=== PATIENT | female | born 1960 | race Hispanic/Latino ===

== ENCOUNTER 2017-06-12 07:33 | Emergency (ER) | payer BC ==
--- NOTE | 2017-06-12 07:53 | ED PDOC ---
Arrival/HPI - General Historian: Patient, Spouse - History of Present Illness Time/Duration: Other (04:30 this morning) Context: Home - General Time Seen by Provider: 06/12/17 07:52 - History of Present Illness Narrative History of Present Illness (Text): 06/12/17 07:52 A 56 year old female, whose past medical history includes orthostatic hypertension, renal failure, anxiety, depression, Parkinsonism, Lewy body dementia, s/p parathyroid tumor removal, presents to the emergency department accompanied by for head trauma. Patient reports she woke up this morning and noticed she was bleeding from a cut to her right tenriism. Patient states she not remember when she fell or how she injured herself. reports he walked into the room at 04:30 this morning and saw his on the floor. Patient denies any other injuries, fever, chills, nausea, vomiting, abdominal pain, chest pain, shortness of breath, headache, dizziness or any other complaints. PMD: [facility] Past Medical History - Provider Review Nursing Documentation Reviewed: Yes - Infectious Disease Hx of Infectious Diseases: None - Tetanus Immunization Tetanus Immunization: Unknown - Cardiac Hx Cardiac Disorders: Yes Hx Hypertension: Yes - Pulmonary Hx Respiratory Disorders: Yes Hx Bronchitis: Yes - Neurological Hx Neurological Disorder: Yes Hx Dizziness: Yes - HEENT Hx HEENT Disorder: No - Renal Hx Renal Failure: Yes - Endocrine/Metabolic Hx Endocrine Disorders: Yes Other/Comment: Parathyroidectomy - Hematological/Oncological Hx Blood Disorders: Yes Hx Anemia: Yes - Integumentary Hx Dermatological Disorder: No - Musculoskeletal/Rheumatological Hx Arthritis: Yes - Gastrointestinal Hx Gastrointestinal Disorders: Yes Hx Gastroesophageal Reflux: Yes - Genitourinary/Gynecological Hx Genitourinary Disorders: No - Psychiatric Hx Psychophysiologic Disorder: Yes Hx Anxiety: Yes Hx Depression: Yes Hx Panic Disorder: Yes Hx Substance Use: No - Surgical History Hx Cardiac Catheterization: Yes Other/Comment: Paraythyroid removed - Anesthesia Hx Anesthesia: Yes Hx Anesthesia Reactions: No Hx Malignant Hyperthermia: No - Suicidal Assessment Feels Threatened In Home Enviroment: No Family/Social History - Physician Review Nursing Documentation Reviewed: Yes Family/Social History: No Known Family HX Smoking Status: Never Smoked Hx Alcohol Use: No Hx Substance Use: No Hx Substance Use Treatment: No Allergies/Home Meds Allergies/Adverse Reactions: Allergies No Known Allergies Allergy (Verified 07/30/14 19:59) Home Medications: Home Meds Medication Instructions Recorded Confirmed Clonazepam 1 mg PO QID 07/22/15 06/12/17 Dexlansoprazole [Dexilant] 60 mg PO DAILY 07/22/15 06/12/17 Escitalopram [Lexapro] 20 mg PO BID 07/22/15 06/12/17 Rosuvastatin Calcium [Crestor] 10 mg PO DAILY 07/22/15 06/12/17 buPROPion [Wellbutrin] 300 mg PO BID 07/22/15 06/12/17 Brexpiprazole [Rexulti] 1 mg PO DAILY 12/05/15 06/12/17 Cholecalciferol (Vitamin D3) 50,000 units PO WED 12/05/15 06/12/17 [Vitamin D3] Diclofenac Sodium 100 mg PO DAILY 12/05/15 06/12/17 Donepezil [Aricept] 5 mg PO DAILY 12/05/15 06/12/17 Furosemide [Lasix] 40 mg PO DAILY 12/05/15 06/12/17 Metoprolol Tartrate [Lopressor] 12.5 mg PO BID 12/05/15 06/12/17 Review of Systems - Physician Review All systems were reviewed & negative as marked: Yes - Review of Systems Constitutional: absent: Fevers, Night Sweats Respiratory: absent: SOB Cardiovascular: absent: Chest Pain Gastrointestinal: absent: Abdominal Pain, Nausea, Vomiting Skin: Laceration (to right tenriism) Neurological: absent: Headache, Dizziness Physical Exam Vital Signs Reviewed: Yes Temperature: Afebrile Blood Pressure: Hypertensive Pulse: Tachycardic Respiratory Rate: Normal Appearance: Positive for: Well-Appearing, Non-Toxic, Comfortable Pain Distress: None Mental Status: Positive for: Alert and Oriented X 3 - Systems Exam Head: Present: Other (Hematoma to right forhead) Pupils: Present: PERRL Extroacular Muscles: Present: EOMI Conjunctiva: Present: Normal Mouth: Present: Moist Mucous Membranes Neck: Present: Normal Range of Motion Respiratory/Chest: Present: Clear to Auscultation, Good Air Exchange. No: Respiratory Distress, Accessory Muscle Use Cardiovascular: Present: Regular Rate and Rhythm, Normal S1, S2. No: Murmurs Abdomen: Present: Normal Bowel Sounds. No: Tenderness, Distention, Peritoneal Signs Back: Present: Normal Inspection Upper Extremity: Present: Normal Inspection. No: Cyanosis, Edema Lower Extremity: Present: Normal Inspection. No: Edema Neurological: Present: GCS=15, CN II-XII Intact, Speech Normal, Motor Func Grossly Intact, Normal Sensory Function, Normal Cerebellar Funct, Gait Normal ( baseline), Normal 2Pt Descrimination Skin: Present: Warm, Dry, Normal Color. No: Rashes Psychiatric: Present: Alert, Oriented x 3, Normal Insight, Normal Concentration Vital Signs Temp Pulse Resp BP Pulse Ox 06/12/17 09:52 82 16 163/103 H 99 06/12/17 07:46 98.2 F 104 H 18 191/106 H 100 Medical Decision Making - Lab Interpretations I have reviewed the lab results: Yes ED Course and Treatment: 06/12/17 09:37 Procedure note: -Laceration repair requested by ER attending Dr. Husain. -Verbal consent obtained from the patient, wound laceratoin happened under 6 hours ago as per patient. -Rt. sided head/facial laceration between rt. temporal and frontal forehead region: approx. 1cm noted with surrounding hematoma (approx. 4cm diameter). -Sensation intact, motor 5/5, wound irrigated with normal saline 1000cc, clean with betadine, 1% lidocaine injected locally with approx. 0.5cc, sterile procedure, 6-0 nylon made 3 sutures with continuous technique, wound well approximated, bacitracin and gauze dressing, sensation intact, motor 5/5, total procedure time including prep is 20 minutes, less than 2cc of blood loss, no complication during the procedure and the patient tolerated well. -Note: pt. refused hair removal/trim for the procedure. (Mateo Dunn) 06/12/17 07:52 Impression: A 56 year old female with a laceration to right tenriism Differential Diagnosis included but are not limited to: Mechanical fall vs. Syncope with head injury Plan: -- Head CT -- Maxillofacial CT -- Labs -- Tylenol, Lidocaine and Boostrix vaccine -- Reassess and disposition Progress Notes: Report Date : 06/12/2017 09:01:09 PROCEDURE: CT HEAD WITHOUT CONTRAST. Dictator : Ap Anne MD IMPRESSION: No acute intracranial abnormalities. No significant findings to account for the clinical presentation. With the exception of a right parietal scalp contusion/ hematoma, No significant interval change compared to the prior examination(s). Report Date : 06/12/2017 09:06:25 PROCEDURE: CT MAXILLOFACIAL BONES WITHOUT CONTRAST Dictator : Ap Anne MD IMPRESSION: No acute intracranial abnormalities. No significant findings to account for the clinical presentation. 06/12/17 09:[address] reviewed above. Laceration repaired by ISADORA Dunn. Patient tolerated procedure well. Patient walking at baseline. She feels better and denies any lightheadedness or dizziness. She does not want to stay in the hospital. Her agrees because they stat she's been worked up already for falls. History in her records show extensive work up for falls including neurology and cardiology. I discussed case with Dr. Ed. Delatorre who will follow up with her as an outpatient. She will need follow up in 1-2days and also suture removal in 7-10days. Advised to return to the ED if symptoms worsen or any other concern. Head Injury and Syncope discharge instructions given. (Marcus Husain) - Lab Interpretations Lab Results: 06/12/17 08:00 06/12/17 08:00 Lab Results 06/12/17 08:00: Sodium 143, Potassium 3.9, Chloride 105, Carbon Dioxide 27, Anion Gap 15, BUN 21, Creatinine 1.1, Est GFR ( Amer) > 60, Est GFR (Non- Af Amer) 51, Random Glucose 109, Calcium 8.9, Magnesium 1.7 06/12/17 08:00: PT 11.2, INR 1.02, APTT 24.4 L 06/12/17 08:00: WBC 9.1 D, RBC 4.92, Hgb 10.4 L, Hct 34.6 L, MCV 70.3 L, MCH 21.1 L, MCHC 30.1 L, RDW 17.3 H, Plt Count 332, MPV 9.8, Gran % 85.5 H, Lymph % (Auto) 8.5 L, [place] % (Auto) 4.2, Eos % (Auto) 1.7, Baso % (Auto) 0.1, Gran # 7.77 H, Lymph # 0.8 L, [place] # 0.4, Eos # 0.2, Baso # 0.01 - RAD Interpretation Radiology Orders: 06/12/17 07:54 HEAD W/O CONTRAST [CT] Stat MAXILLOFACIAL W/O CONTRAST [CT] Stat - Medication Orders Current Medication Orders: Discontinued Medications Acetaminophen (Tylenol 325mg Tab) 650 mg PO STAT STA Stop: 06/12/17 07:56 Last Admin: 06/12/17 08:18 Dose: 650 mg MAR Pain/Vitals Document 06/12/17 08:18 MS (Rec: 06/12/17 08:20 MS [id number]) Pain Reassessment Is This A Pain ReAssessment? No Sleep Is patient sleeping during reassessment? No Presence of Pain Presence of Pain Yes Pain Scale Used Pain Scale Used Numeric Location Pain Location Body [employer] Office Assistant Description Intermittent Intensity 4 Scale Used Numeric Pain Behavior Guarding Lidocaine HCl (Lidocaine 1% (20ml)) 0 ml SC STAT STA Stop: 06/12/17 07:56 Last Admin: 06/12/17 08:21 Dose: 1 ml Subcutaneous Administrations Document 06/12/17 08:21 MS (Rec: 06/12/17 08:21 MS [id number]) Charges for Administration # of Subcutaneous Administrations 1 Tetanus/Reduced Diphtheria/Acell Pertussis (Boostrix Vaccine Inj) 0.5 ml IM .ONCE ONE Stop: 06/12/17 07:56 Last Admin: 06/12/17 08:20 Dose: 0.5 ml Immunization Registry Document 06/12/17 08:20 MS (Rec: 06/12/17 08:21 MS [id number]) Immunization Registry Consent Date 06/12/17 - Scribe Statement The provider has reviewed the documentation as recorded by the Scribe - Scribe Statement Poly Angel Provider Scribe Attestation: All medical record entries made by the Scribe were at my direction and personally dictated by me. I have reviewed the chart and agree that the record accurately reflects my personal performance of the history, physical exam, medical decision making, and the department course for this patient. I have also personally directed, reviewed, and agree with the discharge instructions and disposition. (Marcus Husain) Disposition/Present on Arrival - Present on Arrival Any Indicators Present on Arrival: No History of DVT/PE: No History of Uncontrolled Diabetes: No Urinary Catheter: No History Surgical Site Infection Following: None - Disposition Have Diagnosis and Disposition been Completed?: Yes Disposition Time: 09:52 Patient Plan: Discharge - Disposition Diagnosis: Head injury, Laceration, Multiple falls Disposition: HOME/ ROUTINE Patient Problems: Current Active Problems Problem Status Onset Multiple falls Acute Head injury Acute Laceration Acute Condition: IMPROVED Discharge Instructions (ExitCare): Laceration (DC), Syncope (ED), Fall Prevention for Older Adults (ED), Head Injury (ED) Additional Instructions: Ms Ortiz, thank you for letting us take care of you today. Your provider was Dr. Husain. You were treated for Fall, Head Injury with Laceration. The emergency medical care you received today was directed at your acute symptoms. If you were prescribed any medication, please fill it and take as directed. It may take several days for your symptoms to resolve. Return to the Emergency Department if your symptoms worsen, do not improve, or if you have any other problems. Please follow up with Dr. Delatorre in 7-10days for suture removal as well. Please contact your doctor or call one of the physicians/clinics you have been referred to that are listed on the Patient Visit Information form that is included in your discharge packet. Bring any paperwork you were given at discharge with you along with any medications you are taking to your follow up visit. Our treatment cannot replace ongoing medical care by a primary care provider (PCP) outside of the emergency department. Thank you for allowing the [facility] team to be part of your care today. If you had an X-Ray or CT scan: A Radiologist will review the ED reading if any change in treatment is needed we will contact you. If you had a blood, urine, or wound culture: It will take several days for the results, if any change in treatment is needed we will contact you. If you had an STI test: It will take 48 hours for the results. Please call after 1 week if you have not heard back. Referrals: Miguel Ángel Delatorre MD [Primary Care Provider] - Follow up with primary Forms: [employer] ([place]an)
[2017-06-12] MEDS ORDERED: TDAP Vaccine 0.5 mL Syr IM ONE (07:55)
[2017-06-12] MEDS ORDERED: Lidocaine 1% Inj (20ml) SC STA (07:55)
[2017-06-12 07:57] VITALS: TEMP 98.2; BMI 30.7
[2017-06-12 08:34] LABS: BASO # 0.01 K/mm3 (0.0-2.0); BASO % 0.1 % (0.0-3.0); EOS # 0.2 (0.0-0.7); EOS % 1.7 % (1.5-5.0); GRAN # 7.77 (1.4-6.5); GRAN % 85.5 % (50.0-68.0); HEMATOCRIT 34.6 % (36.0-48.0); LYMPH # 0.8 (1.2-3.4); LYMPH % 8.5 % (22.0-35.0); MEAN CELL VOLUME 70.3 fl (80.0-105.0); MEAN CORPUSCULAR HEMOGLOBIN 21.1 pg (25.0-35.0); MEAN CORPUSCULAR HGB CONC 30.1 g/dl (31.0-37.0); MEAN PLATELET VOLUME 9.8 fl (7.0-11.0); MONO # 0.4 (0.1-0.6); MONO % 4.2 % (1.0-6.0); RED CELL DISTRIBUTION WIDTH 17.3 % (11.5-14.5); WHITE BLOOD COUNT 9.1 10^3/ul (4.5-11.0)
[2017-06-12 08:43] LABS: INR 1.02 (0.93-1.08); PARTIAL THROMBOPLASTIN TIME 24.4 Seconds (25.1-36.5)
[2017-06-12 08:51] LABS: BLOOD UREA NITROGEN 21 mg/dL (7-21); CALCIUM 8.9 mg/dL (8.4-10.5); CARBON DIOXIDE 27 mmol/L (21-33); CHLORIDE 105 mmol/L (98-107); GFR AFRICAN-AMERICAN > 60; GLUCOSE,RANDOM 109 mg/dL (70-110); MAGNESIUM 1.7 mg/dL (1.7-2.2); POTASSIUM 3.9 mmol/L (3.6-5.0); SODIUM 143 mmol/L (132-148)
--- NOTE | 2017-06-12 09:02 | CT ---
PROCEDURE: CT HEAD WITHOUT CONTRAST. HISTORY: fall with right head injury COMPARISON: 07/22/2015. TECHNIQUE: Axial computed tomography images were obtained through the head/brain without intravenous contrast. Radiation dose: Total exam DLP = 8020.39 mGy-cm. This CT exam was performed using one or more of the following dose reduction techniques: Automated exposure control, adjustment of the mA and/or kV according to patient size, and/or use of iterative reconstruction technique. FINDINGS: HEMORRHAGE: No intracranial hemorrhage. BRAIN: No mass effect or edema. No atrophy or chronic microvascular ischemic changes. VENTRICLES: Unremarkable. No hydrocephalus. CALVARIUM: Unremarkable. PARANASAL SINUSES: Unremarkable as visualized. No significant inflammatory changes. MASTOID AIR CELLS: Unremarkable as visualized. No inflammatory changes. OTHER FINDINGS: Right frontal scalp contusion/ hematoma without adjacent calvarial or underlying intracranial abnormality. IMPRESSION: No acute intracranial abnormalities. No significant findings to account for the clinical presentation. With the exception of a right parietal scalp contusion/ hematoma, No significant interval change compared to the prior examination(s).
--- NOTE | 2017-06-12 09:07 | CT ---
PROCEDURE: CT MAXILLOFACIAL BONES WITHOUT CONTRAST HISTORY: fall right facial injury COMPARISON: None TECHNIQUE: Contiguous axial CT images of the maxillofacial bones were obtained. Coronal and sagittal reformats were generated. Radiation dose: Total exam DLP = 697.30 mGy-cm. This CT exam was performed using one or more of the following dose reduction techniques: Automated exposure control, adjustment of the mA and/or kV according to patient size, and/or use of iterative reconstruction technique. FINDINGS: NASAL BONES: Unremarkable. ORBITS: Unremarkable. PARANASAL SINUSES/ MASTOIDS: Mucous retention cyst right maxillary sinus. MAXILLA: Unremarkable. MANDIBLE/ TEMPOROMANDIBULAR JOINTS: Unremarkable. SKULL BASE: Unremarkable. TEMPORAL BONES: Middle ears and mastoid grossly unremarkable. OTHER FINDINGS: None. IMPRESSION: No acute intracranial abnormalities. No significant findings to account for the clinical presentation.
[2017-06-12 09:53] VITALS: BP 163/103; PULSE 82; RESP 16; O2SAT 99
== END 2017-06-12 09:54 | disposition home or self-care (01) ==
LOC: ED 07:33
DX: S01.81XA Laceration without foreign body of other part of head, initial encounter (principal); S09.90XA Unspecified injury of head, initial encounter; X58.XXXA Exposure to other specified factors, initial encounter; I10 Essential (primary) hypertension; G20 Parkinson's disease; F02.80 Dementia in other diseases classified elsewhere, unspecified severity, without behavioral disturbance, psychotic disturbance, mood disturbance, and anxiety; Z23 Encounter for immunization

== ENCOUNTER 2018-03-18 20:33 | Observation (INO) | payer MEDICARE, BC ==
[2018-03-18 20:36] VITALS: BMI 30.4
--- NOTE | 2018-03-18 20:53 | ED PDOC ---
Arrival/HPI - General Chief Complaint: Chest Pain Time Seen by Provider: 03/18/18 20:36 Historian: Patient - History of Present Illness Narrative History of Present Illness (Text): 03/18/18 20:53 Sally Ortiz is a 57 year old female, whose past medical history includes hypertension, GERD, herniated disc, spinal stenosis, anxiety, and depression, who presents to Emergency department brought in by EMS accompanied by complaining of chest pain. Patient states she was sitting at home watching TV 25 minutes prior to arrival when she began experiencing chest pain with associated shortness of breath and diaphoresis. Patient denies any fever, chills, abdominal pain, nausea, vomiting, diarrhea, neck pain, dizziness, or any other complaints. Symptom Onset: Gradual Symptom Course: Unchanged Activities at Onset: Light Context: Home Past Medical History - Provider Review Nursing Documentation Reviewed: Yes - Infectious Disease Hx of Infectious Diseases: None - Tetanus Immunization Tetanus Immunization: Unknown - Cardiac Hx Cardiac Disorders: Yes Hx Hypertension: Yes - Pulmonary Hx Respiratory Disorders: Yes Hx Bronchitis: Yes - Neurological Hx Neurological Disorder: Yes Hx Dizziness: Yes - HEENT Hx HEENT Disorder: No - Renal Hx Renal Failure: Yes - Endocrine/Metabolic Hx Endocrine Disorders: Yes Other/Comment: Parathyroidectomy - Hematological/Oncological Hx Blood Disorders: Yes Hx Anemia: Yes - Integumentary Hx Dermatological Disorder: No - Musculoskeletal/Rheumatological Hx Arthritis: Yes - Gastrointestinal Hx Gastrointestinal Disorders: Yes Hx Gastroesophageal Reflux: Yes - Genitourinary/Gynecological Hx Genitourinary Disorders: No - Psychiatric Hx Psychophysiologic Disorder: Yes Hx Anxiety: Yes Hx Depression: Yes Hx Panic Disorder: Yes Hx Substance Use: No - Surgical History Hx Cardiac Catheterization: Yes Other/Comment: Paraythyroid removed - Anesthesia Hx Anesthesia: Yes Hx Anesthesia Reactions: No Hx Malignant Hyperthermia: No - Suicidal Assessment Feels Threatened In Home Enviroment: No Family/Social History - Physician Review Nursing Documentation Reviewed: Yes Family/Social History: Unknown Family HX Smoking Status: Never Smoked Hx Alcohol Use: No Hx Substance Use: No Hx Substance Use Treatment: No Allergies/Home Meds Allergies/Adverse Reactions: Allergies No Known Allergies Allergy (Verified 03/18/18 20:36) Home Medications: Home Meds Medication Instructions Recorded Confirmed Clonazepam 1 mg PO QID 07/22/15 03/18/18 Dexlansoprazole [Dexilant] 60 mg PO DAILY 07/22/15 03/18/18 Escitalopram [Lexapro] 20 mg PO BID 07/22/15 03/18/18 Rosuvastatin Calcium [Crestor] 10 mg PO DAILY 07/22/15 03/18/18 buPROPion [Wellbutrin] 300 mg PO BID 07/22/15 03/18/18 Brexpiprazole [Rexulti] 1 mg PO DAILY 12/05/15 03/18/18 Cholecalciferol (Vitamin D3) 50,000 units PO WED 12/05/15 03/18/18 [Vitamin D3] Diclofenac Sodium 100 mg PO DAILY 12/05/15 03/18/18 Donepezil [Aricept] 5 mg PO DAILY 12/05/15 03/18/18 Furosemide [Lasix] 40 mg PO DAILY 12/05/15 03/18/18 Metoprolol Tartrate [Lopressor] 12.5 mg PO BID 12/05/15 03/18/18 Review of Systems - Physician Review All systems were reviewed & negative as marked: Yes - Review of Systems Constitutional: Normal. absent: Fevers Eyes: Normal ENT: Normal Respiratory: SOB Cardiovascular: Chest Pain Gastrointestinal: Normal. absent: Abdominal Pain, Diarrhea, Nausea, Vomiting Genitourinary Female: Normal. absent: Dysuria, Frequency, Hematuria, Urine Output Changes Musculoskeletal: Normal. absent: Back Pain, Neck Pain Skin: Normal Neurological: Normal. absent: Dizziness Endocrine: Diaphoresis Hemo/Lymphatic: Normal Psychiatric: Normal Physical Exam Vital Signs Reviewed: Yes Vital Signs Temp Pulse Resp BP Pulse Ox 03/18/18 20:49 98.2 F 86 18 179/79 H 100 Temperature: Afebrile Blood Pressure: Hypertensive Pulse: Regular Respiratory Rate: Normal Appearance: Positive for: Well-Appearing, Non-Toxic, Comfortable Pain Distress: None Mental Status: Positive for: Alert and Oriented X 3 - Systems Exam Head: Present: Atraumatic, Normocephalic Pupils: Present: PERRL Extroacular Muscles: Present: EOMI Conjunctiva: Present: Normal Mouth: Present: Moist Mucous Membranes Neck: Present: Normal Range of Motion. No: Meningeal Signs, MIDLINE TENDERNESS, Paraspinal Tenderness Respiratory/Chest: Present: Clear to Auscultation, Good Air Exchange. No: Respiratory Distress, Accessory Muscle Use Cardiovascular: Present: Regular Rate and Rhythm, Normal S1, S2. No: Murmurs Abdomen: No: Tenderness, Distention, Peritoneal Signs Back: Present: Normal Inspection Upper Extremity: Present: Normal Inspection. No: Cyanosis, Edema Lower Extremity: Present: Normal Inspection. No: Edema Neurological: Present: GCS=15, CN II-XII Intact, Speech Normal Skin: Present: Warm, Dry, Normal Color. No: Rashes Psychiatric: Present: Alert, Oriented x 3, Normal Insight, Normal Concentration Medical Decision Making ED Course and Treatment: 03/18/18 20:53 Impression: 57 year old female presents complaining of chest pain, shortness of breath, and diaphoresis 25 minutes [employer]. Plan: -- EKG -- Chest X-Ray -- Labs, cardiac enzymes, BNP, D-dimer -- US Duplex Lower Extremities -- Reassess and disposition Prior Visits: Notes and results from previous visits were reviewed. On 06/12/2017, pt was seen in the Emergency department s/p head trauma. Pt was discharged home. Progress Notes: Reviewed EKG, NSR at [address] bpm[address] Non-specific ST/T wave changes. 03/18/18 22:59 US Duplex Lower Extremities negative for DVT. 03/19/18 01:52 CTA Chest Impression: Unremarkable CT examination of the chest. No evidence of pulmonary embolism. Case discussed with Dr. Huang, who is aware and agrees with plan. Accepts pt in to his service. Pt will go to Telemetry observation for chest pain. Requests Dr. Mcgarry on consult. - Lab Interpretations I have reviewed the lab results: Yes - RAD Interpretation Basket Operator: ED Physician, Radiologist - EKG Interpretation Interpreted by ED Physician: Yes Type: 12 lead EKG - Scribe Statement The provider has reviewed the documentation as recorded by the Scribe Jammie Kapoor All medical record entries made by the Scribe were at my direction and personally dictated by me. I have reviewed the chart and agree that the record accurately reflects my personal performance of the history, physical exam, medical decision making, and the department course for this patient. I have also personally directed, reviewed, and agree with the discharge instructions and disposition. Disposition/Present on Arrival - Present on Arrival Any Indicators Present on Arrival: No History of DVT/PE: No History of Uncontrolled Diabetes: No Urinary Catheter: No History of Decub. Ulcer: No History Surgical Site Infection Following: None - Disposition Have Diagnosis and Disposition been Completed?: Yes Diagnosis: Chest pain Disposition: HOSPITALIZED Disposition Time: 01:56 Patient Plan: Observation Condition: STABLE Discharge Instructions (ExitCare): Chest Pain (ED) Referrals: Miguel Ángel Delatorre MD [Primary Care Provider] - Follow up with primary Forms: [employer] ([place]ish)
[2018-03-18 21:31] LABS: HEMOGLOBIN 10.2 g/dL (12.0-16.0); MEAN CELL VOLUME 67.5 fl (80.0-105.0); MEAN CORPUSCULAR HEMOGLOBIN 20.2 pg (25.0-35.0); MEAN PLATELET VOLUME 10.1 fl (7.0-11.0); RBC 5.04 10^6/uL (3.5-6.1); RED CELL DISTRIBUTION WIDTH 17.7 % (11.5-14.5); WHITE BLOOD COUNT 7.6 10^3/ul (4.5-11.0)
[2018-03-18 21:36] LABS: INR 0.89; PARTIAL THROMBOPLASTIN TIME 23.9 Seconds (25.1-36.5); PROTHROMBIN TIME 10.1 SECONDS (9.4-12.5)
[2018-03-18 21:41] LABS: ALB/GLOB RATIO 1.4 (1.1-1.8); ALBUMIN 4.3 g/dL (3.0-4.8); ALT/SGPT 65 U/L (7-56); AST/SGOT 113 U/L (14-36); BLOOD UREA NITROGEN 16 mg/dL (7-21); CALCIUM 9.6 mg/dL (8.4-10.5); GFR NON-AFRICAN AMERICAN > 60
[2018-03-18 22:01] LABS: B-TYPE NATRIURETIC PEPTIDE 369 pg/mL (0-450); TROPONIN I < 0.01 ng/mL
[2018-03-18] MEDS ORDERED: Iodixanol 320 MG/ML 100 ML BOTTLE IV ONE (23:38)
[2018-03-19] MEDS ORDERED: Oxycodone/Acetaminophen 5/325 mg Tab PO STA (02:47)
--- NOTE | 2018-03-19 08:15 | CP.PCM.CON ---
History of Present Illness - History of Present Illness History of Present Illness: Awake, alert, no distress,denies chest pain now Reason for consultation: Cardiac evaluation of chest pain Brief history of present illness: A 57 year old obese female who came in to the ER due to chest pain. She was sitting watching TV after eating a beef sandwich and suddenly felt mid sharp chest pain radiating to left arm associated with shortness of breath and diaphoresis. She claimed that she never felt that before. Denies nausea and vomiting. History of hypertension,herniated disc, spinal stenosis, anxiety, and depression, GERD,bronchitis,parathyroidectomy,anemia,arthritis. Seen and examined by me and Dr. Mcgarry Review of Systems - Review of Systems All systems: reviewed and no additional remarkable complaints except Review of Systems: as per HPI Past Patient History - Infectious Disease Hx of Infectious Diseases: None - Tetanus Immunizations Tetanus Immunization: Unknown - Past Social History Smoking Status: Never Smoked - CARDIAC Hx Hypertension: Yes - PULMONARY Hx Respiratory Disorders: Yes Hx Bronchitis: Yes - NEUROLOGICAL Other/Comment: possible lewy body dementia - HEENT Hx HEENT Problems: No - RENAL Hx Renal Failure: Yes - ENDOCRINE/METABOLIC Other/Comment: parathyroidectomy - HEMATOLOGICAL/ONCOLOGICAL Hx Anemia: Yes - INTEGUMENTARY Hx Dermatological Problems: No - MUSCULOSKELETAL/RHEUMATOLOGICAL Hx Falls: Yes ([place]) - GASTROINTESTINAL Hx Gastroesophageal Reflux: Yes - GENITOURINARY/GYNECOLOGICAL Hx Genitourinary Disorders: No - PSYCHIATRIC Hx Substance Use: No - SURGICAL HISTORY Hx Surgeries: Yes Hx Cardiac Catheterization: Yes - ANESTHESIA Hx Anesthesia: Yes Hx Anesthesia Reactions: No Hx Malignant Hyperthermia: No Meds Allergies/Adverse Reactions: Allergies Allergy/AdvReac Type Severity Reaction Status Date / Time No Known Allergies Allergy Verified 03/18/18 20:36 Physical Exam - Constitutional Appears: Non-toxic, No Acute Distress - Head Exam Head Exam: NORMAL INSPECTION, NORMOCEPHALIC - Eye Exam Eye Exam: Normal appearance - ENT Exam ENT Exam: Mucous Membranes Moist, Normal Exam - Respiratory Exam Respiratory Exam: Decreased Breath Sounds, Clear to Auscultation Bilateral, NORMAL BREATHING PATTERN - Cardiovascular Exam Cardiovascular Exam: REGULAR RHYTHM, +S1, +S2 - GI/Abdominal Exam GI & Abdominal Exam: Normal Bowel Sounds, Soft - Extremities Exam Extremities exam: Positive for: full ROM, normal capillary refill, normal inspection - Neurological Exam Neurological exam: Alert, Oriented x3 - Psychiatric Exam Psychiatric exam: Normal Affect, Normal Mood - Skin Skin Exam: Dry, Intact, Normal Color, Warm Results - Vital Signs Recent Vital Signs: Last Vital Signs Temp 98.5 F 03/19/18 08:05 Pulse 95 H 03/19/18 08:05 Resp 20 03/19/18 08:05 BP 196/92 H 03/19/18 08:05 Pulse Ox 97 03/19/18 08:05 - Labs Result Diagrams: 03/18/18 21:19 03/19/18 10:00 Labs: Laboratory Results - last 24 hr 03/18/18 03/18/18 03/18/18 21:19 21:19 21:19 WBC 7.6 RBC 5.04 Hgb 10.2 L Hct 34.0 L MCV 67.5 L MCH 20.2 L MCHC 30.0 L RDW 17.7 H Plt Count 364 MPV 10.1 PT 10.1 INR 0.89 APTT 23.9 L D-Dimer, Quantitative 335 H Sodium 142 Potassium 3.5 L Chloride 102 Carbon Dioxide 30 Anion Gap 14 BUN 16 Creatinine 0.7 Est GFR ( Amer) > 60 Est GFR (Non-Af Amer) > 60 Random Glucose 110 Calcium 9.6 Total Bilirubin 0.5 AST 113 H ALT 65 H Alkaline Phosphatase 142 H Lactate Dehydrogenase 880 H Total Creatine Kinase 42 Troponin I < 0.01 NT-Pro-B Natriuret Pep 369 Total Protein 7.5 Albumin 4.3 Globulin 3.1 Albumin/Globulin Ratio 1.4 Assessment & Plan - Assessment and Plan (Free Text) Assessment: A 57 year old obese female who came in to the ER due to chest pain. She was sitting watching TV after eating a beef sandwich and suddenly felt mid sharp chest pain radiating to left arm associated with shortness of breath and diaphoresis. She claimed that she never felt that before. Denies nausea and vomiting. History of hypertension,herniated disc, spinal stenosis, anxiety, and depression, GERD,bronchitis,parathyroidectomy,anemia,arthritis. She claimed that she had a Stress test and cardiac catheterization 3 years ago. She was told that she has coronary artery disease but not enough blockage to have angioplasty. Denies any further follow up with cardiology for the past 3 years. Atypical chest pain. Troponin negative, EKG NSR, non specific ST-T wave changes,Echo to evaluate LV function. CTA of chest- negative for pulmonary embolism. US of lower extremities negative for DVT. Review of prevoius cardiac work up: 11/2015- ECHO- LVEF 60-65%, Normal chamber size Trace MR/TR, RVSP 33mmHg Plan: For ECHO to day to evaluate LV function For Stress test today Keep NPO Uncontrolled hypertension PRN Hydralazine Lopressor 25 mg BID TSH and Lipid panel,HgbA1C in Am Continue current treatment Continue current medications Chart reviewed Will follow up Plan and treatment discussed with Dr. Mcgarry Thank you Dr. Delatorre for the opportunity of taking care of fabi Ortiz - Date & Time Date: 03/19/18 Time: 06:35
--- NOTE | 2018-03-19 08:16 | RAD ---
Date of service: 03/18/2018 PROCEDURE: CHEST RADIOGRAPH, 1 VIEW HISTORY: pain COMPARISON: 12/06/2015 FINDINGS: LUNGS: Clear. PLEURA: No pneumothorax or pleural fluid seen. CARDIOVASCULAR: Normal. OSSEOUS STRUCTURES: No significant abnormalities. VISUALIZED UPPER ABDOMEN: Normal. OTHER FINDINGS: None. IMPRESSION: No active disease.
--- NOTE | 2018-03-19 09:24 | CT ---
Date of service: 03/19/2018 PROCEDURE: CT Chest with contrast (Pulmonary Angiogram) HISTORY: sob COMPARISON: 12/08/2015 TECHNIQUE: Axial computed tomography images were obtained of the chest in the pulmonary arterial phase of enhancement. Coronal and sagittal reformatted images were created and reviewed. This CT exam was performed using one or more of the following dose reduction techniques: Automated exposure control, adjustment of the mA and/or kV according to patient size, and/or use of iterative reconstruction technique. Intravenous contrast dose: 100 cc of Visipaque Radiation dose: Total exam DLP = 522 mGy-cm. FINDINGS: PULMONARY ARTERIES: Unremarkable. No pulmonary embolism. AORTA: No acute findings. No thoracic aortic aneurysm. LUNGS: Unremarkable. No nodule, mass or pulmonary consolidation. PLEURAL SPACES: Unremarkable. No effusion or pneumothorax. HEART: Unremarkable. No cardiomegaly. No significant pericardial effusion. LYMPH NODES: No lymphadenopathy. BONES, CHEST WALL: Unremarkable. No fracture or destructive lesion OTHER FINDINGS: There is a 9 x 16 mm hypodense lesion in the right lobe of the liver. This is unchanged IMPRESSION: Unremarkable CT pulmonary angiogram. No pulmonary embolus.
--- NOTE | 2018-03-19 10:15 | US ---
HISTORY: Leg pain and swelling. Evaluate for DVT PHYSICIAN(S): Yakov Stuart MD. TECHNIQUE: Duplex sonography and color-flow Doppler with graded compression were used to evaluate the deep venous systems of both lower extremities. FINDINGS: The visualized deep venous systems of both lower extremities are sonographically normal and compressible. Normal wave forms and augmentation are seen. There is no sonographic evidence for deep venous thrombosis in the visualized segments of both lower extremities. IMPRESSION: No sonographic evidence for deep venous thrombosis in the visualized segments of both lower extremities.
[2018-03-19 10:35] LABS: BLOOD UREA NITROGEN 17 mg/dL (7-21); CALCIUM 8.7 mg/dL (8.4-10.5); GFR NON-AFRICAN AMERICAN > 60; HDL CHOLESTEROL 75 mg/dL (29-60)
[2018-03-19 10:44] LABS: TROPONIN I < 0.01 ng/mL
[2018-03-19 10:45] LABS: LDL CHOLESTEROL 124 mg/dL (0-129)
[2018-03-19] MEDS ORDERED: Potassium Chloride 20 mEq ER Tab PO ONE ×2 (10:55→16:00)
--- NOTE | 2018-03-19 11:50 | CARD ---
APPROVED REPORT Date of service: 03/18/2018 EKG Measurement Heart [id number] <Conclusion> Normal sinus rhythm Minimal voltage criteria for LVH, may be normal variant Nonspecific ST and T wave abnormality Prolonged QT Abnormal ECG
--- NOTE | 2018-03-19 12:39 | CARD ---
APPROVED REPORT Date of service: 03/19/2018 EXAM: Two-dimensional and M-mode echocardiogram with Doppler and color Doppler. INDICATION EVALUATE LVFX 2D DIMENSIONS Left Atrium (2D)5.5 (1.6-4.0cm)IVSd1.1 (0.7-1.1cm) LVDd4.1 (3.9-5.9cm)PWd1.3 (0.7-1.1cm) LVDs2.6 (2.5-4.0cm)FS (%) 37.1 % LVEF (%)67.5 (>50%) M-Mode DIMENSIONS Aortic Root3.00 (2.2-3.7cm)Aortic Cusp Exc.1.90 (1.5-2.0cm) Aortic Valve AoV Peak Hwvduxeo563.0cm/sAoV VTI38.8cmAO Peak GR.15mmHg LVOT Peak Ruxdihrn672.0cm/sLVOT VTI28.20cmAO Mean GR.9mmHg Mitral Valve MV E Heclwzvs69.3cm/sMV A Fyscjcro760.0cm/sE/A ratio0.8 TDI Lateral E' Peak V4.39cm/sMedial E' Peak V5.46cm/sE/Lateral E'19.0 E/Medial E'15.3 Pulmonary Valve PV Peak Lkbgxgrz54.6cm/sPV Peak Grad.4mmHg Tricuspid Valve TR Peak Rarqxvgv557ys/sRAP RGYETQCK78eaVpLQ Peak Gr.13mmHg [id number] LEFT VENTRICLE The left ventricle is normal size. There is mild concentric left ventricular hypertrophy. The left ventricular function is normal.EF-65-70% There is normal LV segmental wall motion. Transmitral Doppler flow pattern is Grade III-reversible restrictive diastolic dysfunction. No left ventricle thrombus noted on this study. There is no ventricular septal defect visualized. There is no left ventricular aneurysm. There is no mass noted in the left ventricle. RIGHT VENTRICLE The right ventricle is normal size. There is normal right ventricular wall thickness. The right ventricular systolic function is normal. ATRIA The left atrium is mildly dilated. The right atrium size is normal. The interatrial septum is intact with no evidence for an atrial septal defect. AORTIC VALVE The aortic valve is thickened but opens well. The aortic valve is mildly sclerotic. There is trace aortic regurgitation. Aortic Sclerisis But no There is no aortic valvular vegetation. MITRAL VALVE The mitral valve is thickened but opens well. Mitral regurgitation is trace. There is no mitral valve stenosis. There is no evidence of mitral valve prolapse. TRICUSPID VALVE The tricuspid valve leaflets are thickened , but open well. There is trace tricuspid regurgitation.RVSP-23 mmof Hg. There is no tricuspid valve stenosis. There is no tricuspid valve prolapse or vegetation. PULMONIC VALVE The pulmonary valve is normal in structure. There is no pulmonic valvular regurgitation. There is no pulmonic valvular stenosis. GREAT VESSELS The aortic root is normal in size. The ascending aorta is normal in size. The pulmonary artery is normal. The IVC is normal in size and collapses >50% with inspiration. PERICARDIAL EFFUSION There is no pleural effusion. There is no pericardial effusion. <Conclusion> The left ventricle is normal size. There is mild concentric left ventricular hypertrophy. The left ventricular function is normal.EF-65-70% There is trace aortic regurgitation. Aortic Sclerisis But no Mitral regurgitation is trace. There is trace tricuspid regurgitation.RVSP-23 mmof Hg. The IVC is normal in size and collapses >50% with inspiration. There is no pericardial effusion.
--- NOTE | 2018-03-19 15:25 | CON ---
DATE: 03/19/2018 REASON FOR CONSULTATION: Chest pain rule out CAD. This note is an addendum in addition to the initial note dictated by nurse practitioner, Louise Wilkes. HISTORY OF PRESENT ILLNESS: The patient complained of chest pain, very sharp. History of cardiac catheterization 3 years ago with at [facility]. Found to be nonobstructive coronary artery disease. We will schedule a stress test and echo. Further recommendations after the stress test. The patient is running high blood pressure. We will give additional 5 more mg of Norvasc, total 10 and continue p.r.n. hydralazine, we will start 10 mg of Lisinopril from tomorrow. Also, supplement aggressively potassium. We will start 20 mg of atorvastatin because total cholesterol 230, LDL is 127. Discussed with the sister also, visiting from the [place] about Sally Ortiz. So far, no evidence of acute IN. Added on repeat troponin was essentially negative, TSH 2.61. We will follow with you. We will also supplement aggressively electrolyte and repeat blood workup tomorrow. Repeat electrolyte after supplementing. Thank you, Dr. Delatorre, for providing us the opportunity in taking care of the patient, Sally Ortiz. Yasmine Mcgarry MD
[2018-03-19 16:37] VITALS: O2SAT 95
--- NOTE | 2018-03-19 21:11 | CARD ---
APPROVED REPORT Date of service: 03/19/2018 Protocol: LEXISCAN Test Type: Lexiscan Sestamibi Stress Test Attending Physician: Dr. Yasmine Mcgarry Referring Physician: Dr. Kaden Delatorre Test Indications: Chest Pain Height:5 ft 6 in Weight:189lbs Medications: norvasc, apresoline, lopressor Medical History: 57 year old female with a h/o htn, high cholesterol, arthritis, parathyroidectomy, gerd, lewy body dementia, depression, anxiety and multiplle falls Target HR: 163 bpm Resting ECG: normal Resting Heart Rate: 78 bpm Resting Blood Pressure: 188/94mmHg Submaximum (85%): 139 bpm PROCEDURE Pharmacologic stress testing was performed using 0.4mg per 5ml of regadenoson given intravenously over 7-10 seconds. Reversal agent aminophyline 100 mg, given intravenously for Nausea. POST EXERCISE Reason for Termination: Protocol completed Target HR: No Max HR: 125 bpm 82% of Maximum Predicted HR: 163 bpm Exercise duration: 01:18 min:sec, 0 Stage Exercise capacity: 1.0METs Max Blood Pressure: 188/94mmHg Blood Pressure response to exercise: normal resting BP - appropriate response Heart Rate response to exercise: appropriate Chest Pain: No, none Angina index: 0 Arrhythmia: No, none ST Change: Yes, Depression downsloping II,III, AVf, V5-6 Deviation: 0 mm INTERPRETATION Stress EKG Conclusion: Equivocal Lexiscan (after Injection of Lexiscan pt developed nausea,vomiting and T inverion with down slopping in II,III, Avf and V5-6, which completely resolved and EKG reverted to base line after IV aminophylline, Nuclear scan to follow. Signed by Yasmine Mcgarry Electronically Approved: 03/19/2018 14:15:03 EXAM: Myocardial Perfusion REST/STRESS Stress Test Type: Pharmacologic Imaging Protocol Rest Spect myocardial perfusion imaging was performed in supine position 45 minutes following the injection of 10.3 mCi of Tc-99 Myoview. At peak stress, the patient was injected intravenously with 30.2mCi of Tc-99 tetrofosmin after an infusion time of 0 minutes and 10 seconds. Gated Stress Spect was performed 70 minutes after intravenous Tc-99 Myoview injection. The images were gated to evaluate regional wall motion and calculate ventricular ejection fraction.Images were reconstructed using backfilter projection method in short horizontal and verticle long axis. Spect slices were generated. LV Perfusion The quality of the study is good. The left ventricle is within normal limits in size. The right ventricle is unremarkable. The lung uptake is normal. The distribution of tracer reveals a small area of mildly decreased perfusion in the distal anteroseptal wall on the stress study. The remainder of the LV myocardium is unremarkable. The rest myocardial perfusion study shows improvement of apical defect. Wall Motion Wall motion study shows good contractility of the left ventricle. LVEF = 73%. Conclusion 1. Probably abnormal SPECT myocardial perfusion study. 2. Reversible, mild, distal anteroseptal defect is suspicous of ischemia. However, the effect of shifting breast artifact cannot be excluded. 3. Normal gated wall motion of the left ventricle.
--- NOTE | 2018-03-20 07:03 | CP.PCM.PN ---
Subjective - Date & Time of Evaluation Date of Evaluation: 03/20/18 Time of Evaluation: 06:25 - Subjective Subjective: Aawake, alert, no distress,denies chest pain, denies shortness of breath, lying in bed Reason for consultation: Cardiac evaluation of chest pain,History of hypertension,herniated disc, spinal stenosis, anxiety, and depression, GERD,br onchitis,parathyroidectomy,anemia,arthritis. Seen and examined by me and Dr. Mcgarry Objective - Vital Signs/Intake and Output Vital Signs (last 24 hours): Temp Pulse Resp BP Pulse Ox 98.6 F 58 L 20 150/94 H 95 03/19/18 16:37 03/20/18 05:25 03/19/18 16:37 03/19/18 17:40 03/19/18 16:37 Intake and Output: 03/20/18 03/20/18 06:59 18:59 Intake Total 240 Balance 240 - Medications Medications: Current Medications Acetaminophen (Tylenol 325mg Tab) 650 mg PO Q4H PRN PRN Reason: Pain, Mild (1-3) Last Admin: 03/20/18 02:29 Dose: 650 mg Amlodipine Besylate (Norvasc) 10 mg PO DAILY [facility] Atorvastatin Calcium (Lipitor) 20 mg PO DIN [facility] Last Admin: 03/19/18 17:40 Dose: 20 mg Hydralazine HCl (Apresoline) 10 mg IVP Q6 PRN PRN Reason: hypertension Lisinopril (Zestril) 10 mg PO DAILY [facility] Metoprolol Tartrate (Lopressor) 50 mg PO BRKDIN [facility] Last Admin: 03/19/18 17:40 Dose: 50 mg - Labs Labs: 03/18/18 21:19 03/19/18 10:00 PT 10.1 SECONDS (9.4-12.5) 03/18/18 21:19 INR 0.89 03/18/18 21:19 APTT 23.9 Seconds (25.1-36.5) L 03/18/18 21:19 - Constitutional Appears: Non-toxic, No Acute Distress - Head Exam Head Exam: NORMAL INSPECTION, NORMOCEPHALIC - Eye Exam Eye Exam: Normal appearance - ENT Exam ENT Exam: Mucous Membranes Moist - Respiratory Exam Respiratory Exam: Decreased Breath Sounds, Clear to Ausculation Bilateral, NORMAL BREATHING PATTERN - Cardiovascular Exam Cardiovascular Exam: Bradycardia, +S1, +S2 Additional comments: Telemetry 50's - GI/Abdominal Exam GI & Abdominal Exam: Soft, Normal Bowel Sounds Additional comments: denies nausea,denies vomiting - Extremities Exam Extremities Exam: Normal Capillary Refill Additional comments: back discomfort - Neurological Exam Neurological Exam: Alert, Awake, Oriented x3 - Psychiatric Exam Psychiatric exam: Normal Affect, Normal Mood - Skin Skin Exam: Dry, Intact, Normal Color, Warm Assessment and Plan - Assessment and Plan (Free Text) Assessment: A 57 year old obese female who came in to the ER due to chest pain. She was sitting watching TV after eating a beef sandwich and suddenly felt mid sharp chest pain radiating to left arm associated with shortness of breath and diaphoresis. She claimed that she never felt that before. Denies nausea and vomiting. History of hypertension,herniated disc, spinal stenosis, anxiety, and depression, GERD,bronchitis,parathyroidectomy,anemia,arthritis. She claimed that she had a Stress test and cardiac catheterization 3 years ago. She was told that she has coronary artery disease but not enough blockage to have angioplasty. Denies any further follow up with cardiology for the past 3 years. Atypical chest pain. Troponin negative, EKG NSR, non specific ST-T wave changes,Echo to evaluate LV function. CTA of chest- negative for pulmonary embolism. US of lower extremities negative for DVT. Echo done yesterday. Plan: ECHO done- Normal LV size, LVEF 65-70%, mild concentric left ventricular hyperthropy, Trace AR/MR/TR, aortic sclerosis but no . RVSP 23mmHg, no pericardial effusion Abnormal Stress test-distal anteroseptal defect suspicious of ischemia For cardiac catheterization today Keep NPO Controlled blood pressure PRN Hydralazine On Lopressor 50 mg BID,Hydralazine PRN, Norvasc 10 mg daily, Lipitor 20 mg daily Replenish potassium Continue current treatment Continue current medications Chart reviewed Will follow up Plan and treatment discussed with Dr. Mcgarry
[2018-03-20 07:07] LABS: BASO # 0.02 K/mm3 (0.0-2.0); BASO % 0.3 % (0.0-3.0); EOS # 0.5 (0.0-0.7); EOS % 6.7 % (1.5-5.0); GRAN # 4.9 (1.4-6.5); HEMOGLOBIN 9.2 g/dL (12.0-16.0); LYMPH # 1.4 (1.2-3.4); LYMPH % 19.9 % (22.0-35.0); MEAN CELL VOLUME 67.6 fl (80.0-105.0); MEAN CORPUSCULAR HEMOGLOBIN 19.7 pg (25.0-35.0); MEAN CORPUSCULAR HGB CONC 29.2 g/dl (31.0-37.0); MEAN PLATELET VOLUME 9.7 fl (7.0-11.0); MONO # 0.4 (0.1-0.6); MONO % 5.1 % (1.0-6.0); RBC 4.66 10^6/uL (3.5-6.1); WHITE BLOOD COUNT 7.2 10^3/ul (4.5-11.0)
[2018-03-20 07:09] LABS: BLOOD UREA NITROGEN 19 mg/dL (7-21); CALCIUM 8.5 mg/dL (8.4-10.5); GFR NON-AFRICAN AMERICAN > 60
[2018-03-20] MEDS ORDERED: Potassium Chloride 20 mEq ER Tab PO STA (07:11)
[2018-03-20] MEDS ORDERED: Aspirin 325 mg EC Tablets PO SCH (10:00)
--- NOTE | 2018-03-20 12:45 | PN ---
DATE: 03/20/2018 REASON FOR CONSULTATION: Chest pain, abnormal stress test, for cardiac catheterization today. Patient underwent yesterday a stress test, abnormal anteroseptal distal reversible ischemia. Discussed at length with patient. Patient again will proceed for cardiac catheterization at 03:30 p.m. We will keep n.p.o. after breakfast. We will load with 300 mg Plavix and aspirin. Discussed with the patient's , Hernan Alvarez, telephone number [phone] who is going to be present during the cardiac catheterization. Further recommendation of the cardiac catheterization, we will update Dr. Delatorre. Potassium was low, we will supplement potassium as well. Actually our nurse practitioner gave 40 mEq of potassium at 07:00 a.m. We will follow. Talked to the nurse taking care to keep n.p.o. Thank you Dr. Delatorre for providing the opportunity in taking care of patient, Sally Alvarez. Yasmine Mcgarry MD
--- NOTE | 2018-03-20 13:01 | PN ---
DATE: 03/20/2018 DAILY PROGRESS NOTE SUBJECTIVE: The patient is a 57-year-old female with a history of hypertension, gastroesophageal reflux disease, herniated disk, spinal stenosis, anxiety, depression and possible Lewy dementia, who was admitted to [facility] yesterday complaining of chest pain. As per who is at bedside with the patient today when seen, it was chest heaviness, chest pressure associated with shortness of breath radiating down the left upper extremity and also associated with diaphoresis. The patient has been pain free since she has been hospitalized. Troponins are negative x2. She underwent thallium stress testing, which shows she has a 73% ejection fraction. The stress part of the test did have some EKG changes, but was considered probably normal and the nuclear scans showed a possible anteroseptal defect, but could not rule out breast attenuation. The patient was evaluated by Dr. Mcgarry and Dr. Pacheco, the cardiologists and the patient is scheduled for coronary catheterization later on today. When seen, her lungs are clear. Heart is regular. Abdomen is soft and nontender. Extremities are free of cyanosis, clubbing or edema. The morning's laboratories are unremarkable with a white cell count of 7.2, hemoglobin and hematocrit 9.2 and 31.5 respectively. Sodium is 140 this morning, potassium is 3.3, blood urea nitrogen is 19, creatinine 0.8. Of note is her liver enzymes, AST, ALT, alkaline phosphatase are elevated. This is to be discussed with the patient and addressed after her catheterization later on today. The patient will be reevaluated in the morning and case to be discussed with Cardiology. Miguel Ángel Delatorre MD
[2018-03-20] MEDS ORDERED: Verapamil 2 ML ONE (15:17)
[2018-03-20] MEDS ORDERED: Lidocaine 2% PF (10 ml) Amp ONE (15:17)
[2018-03-20] MEDS ORDERED: Iohexol 350mgl/ml 50 ML ONE (15:18)
[2018-03-20] MEDS ORDERED: Nitroglycerin 50mg in D5W 50 MG/250 ML BOTTLE IV ONE (15:18)
[2018-03-20] MEDS ORDERED: Iodixanol 320 MG/ML 200 ML BOTTLE IV ONE (15:18)
[2018-03-20] MEDS ORDERED: Midazolam 2 MG/2 ML VIAL ONE ×2 (15:33→15:53)
[2018-03-20] MEDS ORDERED: Bacitracin 500 Units/gm Oint Foilpak UD TOP ONE (16:19)
[2018-03-20] MEDS ORDERED: Sodium Chloride 0.9% 1,000 ML IV SCH (16:30)
--- NOTE | 2018-03-20 16:39 | CARD ---
APPROVED REPORT Date of service: 03/20/2018 Procedure(s) performed: Left Heart Catheterization HISTORY The patient is a 57 year-old female with a history of : previous diagnostic cath, hypertension , dyslipidemia , Admitted with unstable angina and abnormal stress test Anteroseptal ischemia. INDICATION The indication(s) include : positive stress test. CASE TECHNIQUE The patient was brought electively to the Cardiac Catheterization Laboratory in a fasting state and was prepped and draped in a sterile manner. The left wrist was infiltrated with 2% Lidocaine subcutaneous anesthesia. A 6FR GLIDES1RP Media[employer] ACCESS KIT sheath was inserted into the left radial artery without difficulty. Coronary angiography was performed using coronary diagnostic catheters. The left coronary system was accessed and visualized with a Diagnostic ,5F JL 4 CATH DXT 100 CM catheter. The right coronary system was accessed and visualized with a Diagnostic ,5F JR 4 CATH DXT 100 CM catheter. The left ventricle was accessed and visualized with a 5F JR 4 CATH DXT 100 CM catheter. Left ventricular/Aortic Valve gradient assessed on pullback. Left ventriculogram was performed in WELLS projection. Closure device was deployed with a Fr TR Band (Regular) without any complications. The patient tolerated the procedure well and there were no complications associated with the procedure. Vessel Analysis The patient's coronary anatomy is right dominant. The left main coronary artery is a large size vessel without significant stenosis. The left main trifurcates to the left anterior descending, circumflex, and ramus. The left anterior descending artery is a medium size vessel with intimal irregularities and without significant stenosis. The first diagonal branch is a medium size vessel with diffuse calcification noted throughout this vessel and without significant stenosis. There is a 50-5% stenosis in the ostial segment. The circumflex artery is a medium size vessel with intimal irregularities and without significant stenosis. The first obtuse marginal branch is a medium size vessel with intimal irregularities and without significant stenosis. The ramus intermedius artery is a large size vessel with intimal irregularities and without significant stenosis. The right coronary artery is a large size vessel without significant stenosis. The right posterior descending artery is a large size vessel without significant stenosis. The right posterolateral branch is a large size vessel . Left Ventricle The left ventricle is normal in size with normal contractility. There was no cardiomyopathy. The left ventricular ejection fraction is estimated to be 65%. The left ventricular end diastolic pressure is 12-14 mmHg. There was no gradient across the aortic valve upon pullback. Conclusion Major Epicardial coronaries are essential Normal D1 has ostial 50-55% stenosis. Preserved Lv Fx. EF-65%, EDP-12-14 mmof Hg. Recommendations Aggressive Medical TherapyCardiac Risk Reduction Program Weight Loss Reduction Program Cc; Sparkle Santiago MD
[2018-03-20 17:43] VITALS: RESP 18
--- NOTE | 2018-03-20 17:59 | CPOSTOP ---
DATE: 03/20/2018 PHYSICIAN: Yasmine Mcgarry MD SUSPENDER CUTTER: Nader Corea, electronic communications technician. TYPE OF ANESTHESIA: Moderate conscious sedation. Total 2 mg of Versed and 125 mcg fentanyl given. PRE-PROCEDURE DIAGNOSIS: Unstable angina, abnormal stress test. PROCEDURE PERFORMED: Left heart catheterization. FINDINGS: Nonobstructive coronary artery disease. FINAL DIAGNOSIS: Nonobstructive coronary artery disease. POST PROCEDURE CONDITION: Stable. VASCULAR ACCESS SITE: Left radial artery. CLOSURE DEVICE: TR band. TOTAL RADIATION DOSE: 5006.9 milligray unit. TOTAL FLUORO TIME: 1.8 minutes. Yasmine Mcgarry MD
[2018-03-20] MEDS ORDERED: Bacitracin 500 Units/gm Oint Foilpak UD ONE (18:42)
[2018-03-20 20:06] VITALS: BP 165/84; PULSE 80; TEMP 99.8
== END 2018-03-20 20:50 | disposition home or self-care (01) ==
LOC: ED 20:33 → ERH 03-19 01:52 → 3RNO 03-19 03:31 → 2RSO 03-20 16:34
PROVIDERS: ADMIT Internal Medicine; ATTEND Internal Medicine
DX: I25.110 Atherosclerotic heart disease of native coronary artery with unstable angina pectoris (principal); E78.5 Hyperlipidemia, unspecified; F41.0 Panic disorder [episodic paroxysmal anxiety]; E66.9 Obesity, unspecified; I10 Essential (primary) hypertension; K21.9 Gastro-esophageal reflux disease without esophagitis; D64.9 Anemia, unspecified; M19.90 Unspecified osteoarthritis, unspecified site; R94.39 Abnormal result of other cardiovascular function study; Z68.30 Body mass index [BMI] 30.0-30.9, adult
CPT/HCPCS: 36415; 71045; 71275; 78452; 80048; 80053; 80061; 82550; 83036; 83615; 83735; 83880; 84100; 84443; 84484; 85025; 85027; 85378; 85610; 85730; 93005; 93017; 93306; 93458; 93970; 99152; 99153; 99285; A9502; C1769; G0378; J0360; J1644; J2250; J2785; J3010; J7030; Q9966; Q9967